=== PATIENT | male | born 1955 | race Caucasian/White ===

== ENCOUNTER → 2020-12-04 | Outpatient (CLI) | payer OTHER | END | disposition home or self-care (01) | LOC: US 09:37 | PROVIDERS: ATTEND Family Medicine | DX: K76.0 Fatty (change of) liver, not elsewhere classified (principal) ==

== ENCOUNTER → 2021-04-01 | Day surgery (SDC) | payer OTHER ==
[~2021-04-01] VITALS: Ht 182.8 cm; Wt 95.3 kg
[2021-04-01 07:10] VITALS: BP 130/86
[2021-04-01 08:02] VITALS: BP 109/69
[2021-04-01 08:17] VITALS: BP 110/70
[2021-04-01 08:26] VITALS: BP 108/71
== END | disposition home or self-care (01) ==
LOC: SDC 03-29 08:45
PROVIDERS: ATTEND Surgery
DX: R10.11 Right upper quadrant pain (principal); K29.50 Unspecified chronic gastritis without bleeding; Z85.038 Personal history of other malignant neoplasm of large intestine; Z98.890 Other specified postprocedural states; Z20.822 Contact with and (suspected) exposure to COVID-19